=== PATIENT | male | born 1955 | race Caucasian/White ===

== ENCOUNTER → 2022-05-09 | Outpatient (CLI) | payer OTHER, MEDICARE ==
[~2022-05-09] MED LIST: ASTELIN137 MCG/AC NS; BENADRYL25 MG PO; COUMADIN5 M2 PO; FLEXERIL10 MG PO; NAPROSYN500 MG PO; NEURONTIN300 MG PO; PERCOCET 325 MG1 TA7 PO; SENOKOT1 TAB PO; SINGULAIR10 MG PO; VICODIN 5/500 505 MG PO; VICODIN ES 7501 TAB PO; ZANAFLEX2 M1 PO
== END | disposition home or self-care (01) ==
LOC: RAD 12:08
PROVIDERS: ATTEND Family Medicine
DX: Z47.89 Encounter for other orthopedic aftercare (principal); Z89.612 Acquired absence of left leg above knee

== ENCOUNTER → 2024-09-22 | Outpatient (CLI) | payer MEDICARE ==
[2024-09-22 08:34] LABS: CHOLESTEROL 184 mg/dL (<200); LDL CHOLESTEROL 96 mg/dL (9-159); TRIGLYCERIDES 241 mg/dl (<150)
== END | disposition home or self-care (01) ==
LOC: LAB 02:34
PROVIDERS: ATTEND Surgery
DX: Z12.5 Encounter for screening for malignant neoplasm of prostate (principal); Z13.9 Encounter for screening, unspecified; Z79.899 Other long term (current) drug therapy